=== PATIENT | male | born 1985 | race Two or more races ===

== ENCOUNTER 2016-11-19 14:09 | Emergency (ER) | payer OTHER ==
[~2016-11-19] VITALS: Ht 170.2 cm; Wt 68.0 kg
[2016-11-19] MEDS ORDERED: IBUPROFEN 400 MG TABLET ONE (14:25)
[2016-11-19] MEDS ORDERED: ACETAMINOPHEN ES 500 MG TABLET ONE (14:25)
[2016-11-19] MEDS ORDERED: IBUPROFEN 400 MG TABLET PO ONE (14:30)
[2016-11-19] MEDS ORDERED: ACETAMINOPHEN ES 500 MG TABLET PO ONE (14:30)
--- NOTE | 2016-11-19 14:35 | NUR ---
BACK FROM CT, MEDICATED ORDERED
[2016-11-19 14:55] VITALS: BP 149/96
== END 2016-11-19 14:57 | disposition home or self-care (01) ==
LOC: ER 14:12
DX: S39.82XA Other specified injuries of lower back, initial encounter (principal); V49.60XA Unspecified car occupant injured in collision with unspecified motor vehicles in traffic accident, initial encounter; Y93.89 Activity, other specified; Y92.89 Other specified places as the place of occurrence of the external cause; Y99.9 Unspecified external cause status; Z90.49 Acquired absence of other specified parts of digestive tract
CPT/HCPCS: 72170-TC; 72220-TC; A4606; Z7610